=== PATIENT | male | born 1950 | race Two or more races ===

== ENCOUNTER → 2023-03-09 | Outpatient (CLI) | payer OTHER ==
[2023-03-09 08:15] LABS: Hematocrit 43.8 % (41.0-53.0); Mean Corpuscular Hemoglobin 31.2 pg (28.0-32.0); Mean Corpuscular Hgb Conc. 34.3 g/dL (32.0-36.0); Red Blood Cells 4.82 10^6/uL (4.5-5.90); Red Cell Distribution Width 14.1 % (11.8-14.3); White Blood Cell 7.2 10^3/uL (4.4-10.8)
[2023-03-09 08:22] LABS: Band Neutrophils % (manual) 0; Basophils % (manual) 0 (0.0-2.0); Blast Cells 0; Eosinophils % (manual) 0 (0-7); Metamyelocytes % 0; Myelocytes % 0; Promyelocytes % 0
[2023-03-09 08:35] LABS: Urine Bacteria NONE SEEN /hpf (None Seen); Urine Blood Negative /uL (Negative); Urine Mucus FEW (None Seen); Urine WBC 1 /hpf (0 - 3)
[2023-03-09 08:54] LABS: Magnesium 2.2 mg/dL (1.6-2.6); Uric Acid 4.8 mg/dL (3.5-7.2)
[2023-03-09 09:05] LABS: Folate (Folic Acid) 17.33 ng/mL (5.38-24)
[2023-03-09 09:06] LABS: Lymphocytes % (manual) 52 (10.0-50.0); Monocytes % (manual) 7 (0-12); Reactive Lymphocytes 4
== END | disposition home or self-care (01) ==
LOC: LAB 07:55
PROVIDERS: ATTEND Nurse Practitioner Family
DX: Z00.00 Encounter for general adult medical examination without abnormal findings (principal)
CPT/HCPCS: 36415; 80061; 81001; 82306; 82607; 82746; 83036; 83735; 84443; 84550; 85007; 85027; 87086

== ENCOUNTER → 2023-06-22 | Outpatient (CLI) | payer OTHER ==
[2023-06-22 11:52] LABS: Basophils # (auto) 0 10 ^3/uL (0-0.2); Basophils % (auto) 0.6 % (0.0-2.0); Eosinophils # (auto) 0.1 10 ^3/uL (0-0.8); Hematocrit 46.4 % (41.0-53.0); Hemoglobin 15.7 g/dL (13.5-17.5); Lymphocytes # (auto) 3.6 10 ^3/uL (0.4-5.4); Mean Corpuscular Hemoglobin 30.4 pg (28.0-32.0); Mean Corpuscular Volume 89.4 fL (80.0-100.0); Monocytes # (auto) 0.5 10 ^3/uL (0-1.3); Monocytes % (auto) 6.4 % (0.0-12.0); Neutrophils # (auto) 2.8 10 ^3/uL (1.6-8.6); Nucleated Red Blood Cells % 0.1 %; Red Blood Cells 5.18 10^6/uL (4.5-5.90); Red Cell Distribution Width 14.3 % (11.8-14.3)
[2023-06-22 11:54] LABS: Urine Bacteria NONE SEEN /hpf (None Seen); Urine Blood Negative /uL (Negative); Urine Clarity Clear (Clear); Urine Color Yellow (Yellow); Urine Mucus FEW (None Seen); Urine Protein, UAD TRACE (Negative); Urine Specific Gravity 1.021 (1.001-1.035); Urine Urobilinogen Normal (Negative); Urine WBC 1 /hpf (0 - 3); Urine pH 5.5 (5.0-8.0)
[2023-06-22 12:45] LABS: Prostate Specific Antigen 1.32 ng/mL (0.0-4.0)
[2023-06-22 12:46] LABS: Alanine Aminotransferase 42 U/L (7-40); Albumin 4.9 g/dL (3.2-4.8); Alkaline Phosphatase 127 U/L (46-116); Anion Gap 8 (5-15); Aspartate Aminotransferase 28 U/L (13-40); BUN/Creatinine Ratio 11.7 (10.0-20.0); Blood Urea Nitrogen 9 mg/dL (9-23); Calcium 9.7 mg/dL (8.7-10.4); Carbon Dioxide 27 mmol/L (20-30); Chloride 105 mmol/L (98-107); Glucose 189 mg/dL (74-106); Magnesium 2.1 mg/dL (1.6-2.6); Potassium 3.9 mmol/L (3.5-5.1); Sodium 140 mmol/L (136-145)
[2023-06-22 12:47] LABS: Bilirubin, Total 1.6 mg/dL (0.2-1.0); Total Protein 7.4 g/dL (5.7-8.2)
[2023-06-22 12:49] LABS: Folate (Folic Acid) 16.15 ng/mL (>5.38)
[2023-06-22 13:13] LABS: Uric Acid 5.2 mg/dL (3.7-9.2)
[2023-06-22 13:14] LABS: Cholesterol 195 mg/dL (< 200); LDL Cholesterol 118 mg/dL (< 100); Triglycerides 135 mg/dL (< 150)
[2023-06-22 13:16] LABS: HDL Cholesterol 56 mg/dL (40-59)
== END | disposition home or self-care (01) ==
LOC: LAB 11:25
PROVIDERS: ATTEND Internal Medicine
DX: D51.9 Vitamin B12 deficiency anemia, unspecified (principal); E55.9 Vitamin D deficiency, unspecified; E61.2 Magnesium deficiency; R79.89 Other specified abnormal findings of blood chemistry; R68.89 Other general symptoms and signs; R73.09 Other abnormal glucose; R82.90 Unspecified abnormal findings in urine; R82.79 Other abnormal findings on microbiological examination of urine; R94.6 Abnormal results of thyroid function studies
CPT/HCPCS: 36415; 80053; 80061; 81001; 82306; 82607; 82746; 83036; 83735; 84153; 84443; 84550; 85025; 87086

== ENCOUNTER → 2023-09-14 | Outpatient (CLI) | payer OTHER ==
[2023-09-14 11:05] LABS: Hematocrit 43.8 % (41.0-53.0); Hemoglobin 14.7 g/dL (13.5-17.5); Mean Corpuscular Hemoglobin 30.7 pg (28.0-32.0); Mean Corpuscular Hgb Conc. 33.7 g/dL (32.0-36.0); Mean Corpuscular Volume 91.1 fL (80.0-100.0); Red Blood Cells 4.81 10^6/uL (4.5-5.90); Red Cell Distribution Width 13.5 % (11.8-14.3); White Blood Cell 6.9 10^3/uL (4.4-10.8)
[2023-09-14 11:29] LABS: Band Neutrophils % (manual) 0; Basophils % (manual) 0 (0.0-2.0); Blast Cells 0; Metamyelocytes % 0; Myelocytes % 0; Promyelocytes % 0; Reactive Lymphocytes 0
[2023-09-14 11:56] LABS: Alanine Aminotransferase 28 U/L (7-40); Albumin 4.4 g/dL (3.2-4.8); Alkaline Phosphatase 98 U/L (46-116); Anion Gap 6 (5-15); Aspartate Aminotransferase 24 U/L (13-40); BUN/Creatinine Ratio 7.4 (10.0-20.0); Blood Urea Nitrogen 6 mg/dL (9-23); Calcium 9.9 mg/dL (8.5-10.1); Carbon Dioxide 29 mmol/L (20-30); Chloride 107 mmol/L (98-107); Cholesterol 189 mg/dL (< 200); Glucose 144 mg/dL (74-106); HDL Cholesterol 48 mg/dL (40-59); LDL Cholesterol 121 mg/dL (< 100); Potassium 4.1 mmol/L (3.5-5.1); Sodium 142 mmol/L (136-145); Triglycerides 164 mg/dL (< 150)
[2023-09-14 12:00] LABS: Folate (Folic Acid) 18.47 ng/mL (>5.38)
[2023-09-14 12:07] LABS: Magnesium 2.1 mg/dL (1.6-2.6); Uric Acid 4.2 mg/dL (3.7-9.2)
[2023-09-14 12:29] LABS: Eosinophils % (manual) 4 (0-7); Lymphocytes % (manual) 58 (10.0-50.0); Monocytes % (manual) 5 (0-12); Platelet Estimate Adequate
[2023-09-14 13:14] LABS: Urine Bacteria FEW /hpf (None Seen); Urine Blood Negative /uL (Negative); Urine Budding Yeast FEW /hpf (None Seen); Urine Clarity HAZY (Clear); Urine Color Yellow (Yellow); Urine Mucus FEW (None Seen); Urine Protein, UAD Negative (Negative); Urine Specific Gravity 1.017 (1.001-1.035); Urine Urobilinogen Normal (Negative); Urine WBC <1 /hpf (0 - 3)
== END | disposition home or self-care (01) ==
LOC: LAB 10:45
PROVIDERS: ATTEND Internal Medicine
DX: E61.2 Magnesium deficiency (principal); R78.89 Finding of other specified substances, not normally found in blood; E78.9 Disorder of lipoprotein metabolism, unspecified; R68.89 Other general symptoms and signs; R94.6 Abnormal results of thyroid function studies; E79.0 Hyperuricemia without signs of inflammatory arthritis and tophaceous disease; R82.90 Unspecified abnormal findings in urine; R82.991 Hypocitraturia; R82.79 Other abnormal findings on microbiological examination of urine; E85.9 Amyloidosis, unspecified; D51.9 Vitamin B12 deficiency anemia, unspecified
CPT/HCPCS: 36415; 80053; 80061; 81001; 82306; 82607; 82746; 83036; 83735; 84443; 84550; 85007; 85027; 87086

== ENCOUNTER → 2023-11-15 | Outpatient (CLI) | payer OTHER ==
[2023-11-15 09:46] LABS: Urine Bacteria NONE SEEN /hpf (None Seen); Urine Blood Negative /uL (Negative); Urine Clarity Clear (Clear); Urine Color Yellow (Yellow); Urine Protein, UAD Negative (Negative); Urine Specific Gravity 1.039 (1.001-1.035); Urine Urobilinogen Normal (Negative); Urine WBC <1 /hpf (0 - 3); Urine pH 6.5 (5.0-8.0)
[2023-11-15 09:55] LABS: Hematocrit 46.6 % (41.0-53.0); Hemoglobin 15.7 g/dL (13.5-17.5); Mean Corpuscular Hemoglobin 30.4 pg (28.0-32.0); Mean Corpuscular Hgb Conc. 33.7 g/dL (32.0-36.0); Mean Corpuscular Volume 90.3 fL (80.0-100.0); Red Blood Cells 5.16 10^6/uL (4.5-5.90); Red Cell Distribution Width 13.9 % (11.8-14.3); White Blood Cell 8.4 10^3/uL (4.4-10.8)
[2023-11-15 10:01] LABS: Band Neutrophils % (manual) 0; Basophils % (manual) 0 (0.0-2.0); Blast Cells 0; Metamyelocytes % 0; Myelocytes % 0; Promyelocytes % 0
[2023-11-15 10:15] LABS: Alanine Aminotransferase 33 U/L (7-40); Albumin 4.5 g/dL (3.2-4.8); Alkaline Phosphatase 118 U/L (46-116); Anion Gap 4 (5-15); Aspartate Aminotransferase 22 U/L (13-40); BUN/Creatinine Ratio 13.3 (10.0-20.0); Blood Urea Nitrogen 11 mg/dL (9-23); Carbon Dioxide 27 mmol/L (20-30); Chloride 108 mmol/L (98-107); Glucose 153 mg/dL (74-106); LDL Cholesterol 151 mg/dL (< 100); Sodium 139 mmol/L (136-145); Triglycerides 129 mg/dL (< 150)
[2023-11-15 10:16] LABS: Bilirubin, Total 1.6 mg/dL (0.2-1.0); Cholesterol 232 mg/dL (< 200); HDL Cholesterol 65 mg/dL (40-59); Total Protein 7.1 g/dL (5.7-8.2)
[2023-11-15 10:21] LABS: Folate (Folic Acid) 19.61 ng/mL (>5.38)
[2023-11-15 10:26] LABS: Uric Acid 5.1 mg/dL (3.7-9.2)
[2023-11-15 10:27] LABS: Magnesium 2.1 mg/dL (1.6-2.6)
[2023-11-15 12:42] LABS: Eosinophils % (manual) 3 (0-7); Lymphocytes % (manual) 52 (10.0-50.0); Monocytes % (manual) 14 (0-12); Platelet Estimate Adequate; Reactive Lymphocytes 1
== END | disposition home or self-care (01) ==
LOC: LAB 09:19
PROVIDERS: ATTEND Internal Medicine
DX: E61.2 Magnesium deficiency (principal); E78.9 Disorder of lipoprotein metabolism, unspecified; R68.89 Other general symptoms and signs; R78.89 Finding of other specified substances, not normally found in blood; R94.6 Abnormal results of thyroid function studies; E79.0 Hyperuricemia without signs of inflammatory arthritis and tophaceous disease; R82.991 Hypocitraturia; E85.9 Amyloidosis, unspecified; R82.90 Unspecified abnormal findings in urine; R82.79 Other abnormal findings on microbiological examination of urine; D51.9 Vitamin B12 deficiency anemia, unspecified
CPT/HCPCS: 36415; 80053; 80061; 81001; 82306; 82607; 82746; 83036; 83735; 84443; 84550; 85007; 85027; 87086

== ENCOUNTER → 2023-12-22 | Outpatient (CLI) | payer OTHER ==
[2023-12-22 09:52] LABS: Basophils # (auto) 0 10 ^3/uL (0-0.2); Basophils % (auto) 0.6 % (0.0-2.0); Eosinophils # (auto) 0.1 10 ^3/uL (0-0.8); Eosinophils % (auto) 1.7 % (0.0-7.0); Hematocrit 42.6 % (41.0-53.0); Lymphocytes # (auto) 3.9 10 ^3/uL (0.4-5.4); Mean Corpuscular Hemoglobin 29.6 pg (28.0-32.0); Mean Corpuscular Hgb Conc. 32.8 g/dL (32.0-36.0); Mean Corpuscular Volume 90.5 fL (80.0-100.0); Monocytes # (auto) 0.5 10 ^3/uL (0-1.3); Monocytes % (auto) 7.4 % (0.0-12.0); Neutrophils # (auto) 2.5 10 ^3/uL (1.6-8.6); Neutrophils % (auto) 35.3 % (37.0-80.0); Nucleated Red Blood Cells % 0.1 %; Red Blood Cells 4.71 10^6/uL (4.5-5.90); Red Cell Distribution Width 13.5 % (11.8-14.3); White Blood Cell 7.1 10^3/uL (4.4-10.8)
[2023-12-22 10:06] LABS: Urine Bacteria NONE SEEN /hpf (None Seen); Urine Blood Negative /uL (Negative); Urine Clarity Clear (Clear); Urine Color Colorless (Yellow); Urine Mucus FEW (None Seen); Urine Protein, UAD Negative (Negative); Urine Specific Gravity 1.014 (1.001-1.035); Urine Urobilinogen Normal (Negative); Urine WBC <1 /hpf (0 - 3); Urine pH 5.5 (5.0-8.0)
[2023-12-22 10:28] LABS: Triglycerides 150 mg/dL (< 150)
[2023-12-22 10:29] LABS: Alanine Aminotransferase 20 U/L (7-40); Albumin 4.1 g/dL (3.2-4.8); Alkaline Phosphatase 114 U/L (46-116); Anion Gap 6 (5-15); Aspartate Aminotransferase 18 U/L (13-40); BUN/Creatinine Ratio 10.3 (10.0-20.0); Bilirubin, Total 1.4 mg/dL (0.2-1.0); Blood Urea Nitrogen 9 mg/dL (9-23); Calcium 9.5 mg/dL (8.5-10.1); Carbon Dioxide 29 mmol/L (20-30); Chloride 105 mmol/L (98-107); Cholesterol 168 mg/dL (< 200); Glucose 149 mg/dL (74-106); HDL Cholesterol 50 mg/dL (40-59); LDL Cholesterol 96 mg/dL (< 100); Sodium 140 mmol/L (136-145); Total Protein 6.8 g/dL (5.7-8.2)
[2023-12-22 10:43] LABS: Folate (Folic Acid) 18.13 ng/mL (>5.38)
[2023-12-22 11:20] LABS: Uric Acid 4.7 mg/dL (3.7-9.2)
[2023-12-22 11:21] LABS: Magnesium 1.9 mg/dL (1.6-2.6)
== END | disposition home or self-care (01) ==
LOC: LAB 09:29
PROVIDERS: ATTEND Internal Medicine
DX: E61.2 Magnesium deficiency (principal); E79.0 Hyperuricemia without signs of inflammatory arthritis and tophaceous disease; R94.6 Abnormal results of thyroid function studies; R82.998 Other abnormal findings in urine; D51.9 Vitamin B12 deficiency anemia, unspecified; E55.9 Vitamin D deficiency, unspecified; R82.79 Other abnormal findings on microbiological examination of urine; R78.89 Finding of other specified substances, not normally found in blood; R68.89 Other general symptoms and signs; E78.49 Other hyperlipidemia; R73.09 Other abnormal glucose
CPT/HCPCS: 36415; 80053; 80061; 81001; 82306; 82607; 82746; 83036; 83735; 84443; 84550; 85025; 87086

== ENCOUNTER → 2024-05-10 | Outpatient (CLI) | payer OTHER ==
[2024-05-10 11:02] LABS: Urine Bacteria None Seen /hpf (None Seen)
[2024-05-10 11:11] LABS: Hematocrit 45.4 % (41.0-53.0); Hemoglobin 15.7 g/dL (13.5-17.5); Mean Corpuscular Hemoglobin 31.1 pg (28.0-32.0); Mean Corpuscular Hgb Conc. 34.5 g/dL (32.0-36.0); Red Blood Cells 5.04 10^6/uL (4.5-5.90); White Blood Cell 6.8 10^3/uL (4.4-10.8)
[2024-05-10 11:15] LABS: Urine Blood Negative /uL (Negative); Urine Clarity Clear (Clear); Urine Color Yellow (Yellow); Urine Mucus FEW (None Seen); Urine Protein, UAD TRACE (Negative); Urine Specific Gravity 1.022 (1.001-1.035); Urine Urobilinogen Normal (Negative); Urine WBC <1 /hpf (0 - 3)
[2024-05-10 11:40] LABS: Band Neutrophils % (manual) 0; Basophils % (manual) 0 (0.0-2.0); Blast Cells 0; Metamyelocytes % 0; Myelocytes % 0; Promyelocytes % 0; Reactive Lymphocytes 0
[2024-05-10 11:59] LABS: Alanine Aminotransferase 34 U/L (7-40); Albumin 4.6 g/dL (3.2-4.8); Alkaline Phosphatase 109 U/L (46-116); Anion Gap 7 (5-15); Aspartate Aminotransferase 22 U/L (13-40); BUN/Creatinine Ratio 10.8 (10.0-20.0); Blood Urea Nitrogen 9 mg/dL (9-23); Calcium 10.2 mg/dL (8.7-10.4); Carbon Dioxide 28 mmol/L (20-30); Chloride 105 mmol/L (98-107); Cholesterol 194 mg/dL (< 200); Glucose 138 mg/dL (74-106); LDL Cholesterol 115 mg/dL (< 100); Magnesium 2.1 mg/dL (1.6-2.6); Sodium 140 mmol/L (136-145); Triglycerides 134 mg/dL (< 150)
[2024-05-10 12:00] LABS: Bilirubin, Total 1.3 mg/dL (0.2-1.0); HDL Cholesterol 53 mg/dL (40-59); Total Protein 7.2 g/dL (5.7-8.2)
[2024-05-10 12:01] LABS: Folate (Folic Acid) 17.74 ng/mL (>5.38)
[2024-05-10 12:10] LABS: Uric Acid 5.3 mg/dL (3.7-9.2)
[2024-05-10 12:28] LABS: Eosinophils % (manual) 4 (0-7); Lymphocytes % (manual) 55 (10.0-50.0); Monocytes % (manual) 5 (0-12)
[2024-05-10 12:30] LABS: Platelet Estimate Adequate
== END | disposition home or self-care (01) ==
LOC: LAB 10:41
PROVIDERS: ATTEND Internal Medicine
DX: E11.9 Type 2 diabetes mellitus without complications (principal); E78.5 Hyperlipidemia, unspecified; I10 Essential (primary) hypertension; Z68.32 Body mass index [BMI] 32.0-32.9, adult
CPT/HCPCS: 36415; 80053; 80061; 81001; 82306; 82607; 82746; 83036; 83735; 84443; 84550; 85007; 85027; 87086

== ENCOUNTER → 2024-05-15 | Outpatient (CLI) | payer OTHER ==
[2024-05-15 11:22] LABS: Anion Gap 6 (5-15); Carbon Dioxide 30 mmol/L (20-30); Chloride 106 mmol/L (98-107); Potassium 4.1 mmol/L (3.5-5.1); Sodium 142 mmol/L (136-145)
[2024-05-15 11:23] LABS: Calcium 9.7 mg/dL (8.7-10.4)
[2024-05-15 11:29] LABS: BUN/Creatinine Ratio 8.5 (10.0-20.0); Blood Urea Nitrogen 7 mg/dL (9-23); Glucose 164 mg/dL (74-106)
[2024-05-15 11:53] LABS: Creatinine, Urine 95.97 mg/dL (30.0-125.0)
[2024-05-15 11:55] LABS: Micro Albumin < 3.0 mg/L (<30.0)
== END | disposition home or self-care (01) ==
LOC: LAB 10:27
PROVIDERS: ATTEND Internal Medicine
DX: E11.9 Type 2 diabetes mellitus without complications (principal); I10 Essential (primary) hypertension; E78.5 Hyperlipidemia, unspecified; Z68.32 Body mass index [BMI] 32.0-32.9, adult
CPT/HCPCS: 36415; 80048; 82043; 82570

== ENCOUNTER → 2024-08-14 | Outpatient (CLI) | payer OTHER ==
[2024-08-14 10:20] LABS: Urine Bacteria None Seen /hpf (None Seen)
[2024-08-14 11:10] LABS: Hemoglobin 14.5 g/dL (13.5-17.5); Mean Corpuscular Hemoglobin 30.9 pg (28.0-32.0); Mean Corpuscular Hgb Conc. 34.4 g/dL (32.0-36.0); Mean Corpuscular Volume 89.8 fL (80.0-100.0); Platelet Count (auto) 191 10^3/uL (140-450); Red Blood Cells 4.68 10^6/uL (4.5-5.90); Red Cell Distribution Width 13.8 % (11.8-14.3); White Blood Cell 7.3 10^3/uL (4.4-10.8)
[2024-08-14 11:12] LABS: Basophils % (manual) 0 (0.0-2.0); Blast Cells 0; Metamyelocytes % 0; Myelocytes % 0; Promyelocytes % 0; Reactive Lymphocytes 0
[2024-08-14 11:17] LABS: Urine Blood Negative /uL (Negative); Urine Clarity Clear (Clear); Urine Color Light-Yellow (Yellow); Urine Protein, UAD Negative (Negative); Urine Specific Gravity 1.039 (1.001-1.035); Urine Urobilinogen Normal (Negative); Urine WBC <1 /hpf (0 - 3); Urine pH 5.5 (5.0-9.0)
[2024-08-14 11:33] LABS: Alanine Aminotransferase 30 U/L (7-40); Alkaline Phosphatase 90 U/L (46-116); Anion Gap 6 (5-15); BUN/Creatinine Ratio 11.7 (10.0-20.0); Blood Urea Nitrogen 9 mg/dL (9-23); Calcium 9.8 mg/dL (8.7-10.4); Carbon Dioxide 28 mmol/L (20-31); Chloride 108 mmol/L (98-107); Glucose 140 mg/dL (74-106); LDL Cholesterol 82 mg/dL (< 100); Magnesium 2.1 mg/dL (1.6-2.6); Potassium 3.8 mmol/L (3.5-5.1); Sodium 142 mmol/L (136-145); Triglycerides 100 mg/dL (< 150)
[2024-08-14 11:34] LABS: Albumin 4.3 g/dL (3.2-4.8); Aspartate Aminotransferase 22 U/L (13-40); Bilirubin, Total 1.8 mg/dL (0.2-1.0); Cholesterol 163 mg/dL (< 200); HDL Cholesterol 61 mg/dL (40-59)
[2024-08-14 11:51] LABS: Folate (Folic Acid) 19.05 ng/mL (>5.38)
[2024-08-14 11:54] LABS: Band Neutrophils % (manual) 4; Eosinophils % (manual) 3 (0-7); Lymphocytes % (manual) 60 (10.0-50.0); Monocytes % (manual) 4 (0-12); Platelet Estimate Adequate
[2024-08-14 12:33] LABS: Uric Acid 4.2 mg/dL (3.7-9.2)
== END | disposition home or self-care (01) ==
LOC: LAB 10:05
PROVIDERS: ATTEND Nurse Practitioner Family
DX: I10 Essential (primary) hypertension (principal); E11.9 Type 2 diabetes mellitus without complications; E78.5 Hyperlipidemia, unspecified; M47.812 Spondylosis without myelopathy or radiculopathy, cervical region; I00 Rheumatic fever without heart involvement; Z79.899 Other long term (current) drug therapy
CPT/HCPCS: 36415; 80053; 80061; 81001; 82043; 82306; 82607; 82746; 83036; 83735; 84443; 84550; 85007; 85027; 87086

== ENCOUNTER → 2024-11-14 | Outpatient (CLI) | payer OTHER ==
[2024-11-14 12:13] LABS: Urine Bacteria None Seen /hpf (None Seen)
[2024-11-14 12:39] LABS: Basophils # (auto) 0 10 ^3/uL (0-0.2); Basophils % (auto) 0.7 % (0.0-2.0); Eosinophils # (auto) 0.1 10 ^3/uL (0-0.8); Eosinophils % (auto) 1.5 % (0.0-7.0); Hematocrit 46.7 % (41.0-53.0); Hemoglobin 15.3 g/dL (13.5-17.5); Lymphocytes # (auto) 3.1 10 ^3/uL (0.4-5.4); Lymphocytes % (auto) 49.3 % (10.0-50.0); Mean Corpuscular Hemoglobin 29.6 pg (28.0-32.0); Mean Corpuscular Hgb Conc. 32.8 g/dL (32.0-36.0); Mean Corpuscular Volume 90.2 fL (80.0-100.0); Monocytes # (auto) 0.5 10 ^3/uL (0-1.3); Monocytes % (auto) 7.4 % (0.0-12.0); Neutrophils # (auto) 2.6 10 ^3/uL (1.6-8.6); Neutrophils % (auto) 41.1 % (37.0-80.0); Nucleated Red Blood Cells % 0.2 %; Platelet Count (auto) 169 10^3/uL (140-450); Red Blood Cells 5.18 10^6/uL (4.5-5.90); Red Cell Distribution Width 14.2 % (11.8-14.3); White Blood Cell 6.2 10^3/uL (4.4-10.8)
[2024-11-14 13:08] LABS: Urine Blood Negative /uL (Negative); Urine Clarity Clear (Clear); Urine Color Light-Yellow (Yellow); Urine Protein, UAD Negative (Negative); Urine Specific Gravity 1.044 (1.001-1.035); Urine Squamous Epithelial Cell FEW /hpf (<5); Urine Urobilinogen Normal (Negative)
[2024-11-14 13:58] LABS: Alanine Aminotransferase 33 U/L (7-40); Albumin 4.7 g/dL (3.2-4.8); Anion Gap 12 (5-15); Aspartate Aminotransferase 24 U/L (13-40); BUN/Creatinine Ratio 13.8 (10.0-20.0); Bilirubin, Total 1.2 mg/dL (0.2-1.0); Blood Urea Nitrogen 11 mg/dL (9-23); Carbon Dioxide 26 mmol/L (20-31); Chloride 104 mmol/L (98-107); Cholesterol 199 mg/dL (< 200); HDL Cholesterol 59 mg/dL (40-59); Sodium 142 mmol/L (136-145); Total Protein 7.4 g/dL (5.7-8.2); Triglycerides 110 mg/dL (< 150)
[2024-11-14 14:01] LABS: Alkaline Phosphatase 118 U/L (46-116); Calcium 10.5 mg/dL (8.7-10.4); Glucose 149 mg/dL (74-106); LDL Cholesterol 126 mg/dL (< 100)
[2024-11-14 14:28] LABS: Uric Acid 4.1 mg/dL (3.7-9.2)
[2024-11-14 15:27] LABS: Folate (Folic Acid) 17.63 ng/mL (>5.38)
== END | disposition home or self-care (01) ==
LOC: LAB 11:53
PROVIDERS: ATTEND Internal Medicine
DX: E55.9 Vitamin D deficiency, unspecified (principal); E61.2 Magnesium deficiency; R94.6 Abnormal results of thyroid function studies; R82.79 Other abnormal findings on microbiological examination of urine; D51.9 Vitamin B12 deficiency anemia, unspecified; E79.89 Other specified disorders of purine and pyrimidine metabolism; R68.89 Other general symptoms and signs; R73.09 Other abnormal glucose
CPT/HCPCS: 36415; 80053; 80061; 81001; 82306; 82607; 82746; 83036; 84443; 84550; 85025; 87086

== ENCOUNTER 2024-12-12 08:52 | Inpatient (IN) | payer OTHER, MEDICAID ==
[~2024-12-12] VITALS: Ht 152.4 cm; Wt 71.6 kg
--- NOTE | 2024-12-12 09:37 | ED.PDOC ---
History of Present Illness HPI Comments 74-year-old male with PMHx DM, HTN, Peptic Ulcers presents with a chief complaint of abdominal pain, hematemesis, nausea, and vomiting. Patient states that his abdomen pain is localized to his epigastric region, nonradiating, describes as cramping. Patient mentions that his onset of symptoms began this morning. Patient noticed that he had blood in his vomit. Patient denies having an endoscopy recently. No other symptoms or modifying factors present at this time. Chief Complaint: GI Bleed Time Seen by MD: 09:20 Primary Care Provider: EFRAIN Evans Notes: Medications, Allergies Allergies: Coded Allergies: NO KNOWN ALLERGIES (Unverified , 12/12/24) Information Source: Patient Mode of Arrival: Ambulatory Severity: Moderate Timing: Hours Duration: Since onset Prehospital treatment: None Past Medical History PAST MEDICAL HISTORY: DM, HTN Past Medical History (Other): Peptic Ulcers Surgical History: Denies all surgeries Family History Family History: Reviewed,noncontributory to illness Social History Smoker: Non-Smoker Alcohol: Denies ETOH Use Drugs: Denies Drug Use Lives In: Home Constitutional: denies: chills, diaphoresis, fatigue, fever, malaise, sweats, weakness, others EENTM: denies: blurred vision, double vision, ear bleeding, ear discharge, ear drainage, ear pain, ear ringing, eye pain, eye redness, hearing loss, mouth pain, mouth swelling, nasal discharge, nose bleeding, nose congestion, nose pain, photophobia, tearing, throat pain, throat swelling, voice changes, others Respiratory: denies: cough, hemoptysis, orthopnea, SOB at rest, shortness of breath, SOB with excertion, stridor, wheezing, others Cardiovascular: denies: chest pain, dizzy spells, diaphoresis, Dyspnea on exertion, edema, irregular heart beat, left arm pain, lightheadedness, palpitations, PND, syncope, others Gastrointestinal: reports: abdominal pain, hematemesis, nausea, vomiting; denies: abdomen distended, blood streaked bowels, constipated, diarrhea, dysphagia, difficulty swallowing, melena, poor appetite, poor fluid intake, rectal bleeding, rectal pain, others Genitourinary: denies: burning, dysuria, flank pain, frequency, hematuria, incontinence, penile discharge, penile sore, pain, testicle pain, testicle swelling, urgency, others Neurological: denies: dizziness, fainting, headache, left sided numbness, left sided weakness, numbness, paresthesia, pre-existing deficit, right sided numbness, right sided weakness, seizure, speech problems, tingling, tremors, weakness, others Musculoskeletal: denies: back pain, gout, joint pain, joint swelling, muscle pain, muscle stiffness, neck pain, others Integumetry: denies: bruises, change in color, change in hair/nails, dryness, laceration, lesions, lumps, rash, wounds, others Allergic/Immunocompromised: denies: Difficulty Healing, Frequent Infections, Hives, Itching, others Hematologic/Lymphatic: denies: anemia, blood clots, easy bleeding, easy bruising, swollen glands, others Endocrine: denies: excessive hunger, excessive sweating, excessive thirst, excessive urination, flushing, intolerance to cold, intolerance to heat, unexplained weight gain, unexplained weight loss, others Psychiatric: denies: anxiety, bipolar disorder, depression, hopeless, panic disorder, schizophrenia, sleepless, suicidal, others All Other Systems: Reviewed and Negative Physical Exam General Appearance: No Apparent Distress, Normal HEENT: Normal ENT Inspection, Pharynx Normal, TMs Normal Neck: Full Range of Motion, Non-Tender, Normal, Normal Inspection Respiratory: Chest Non-Tender, Lungs Clear, No Accessory Muscle Use, No Re spiratory Distress, Normal Breath Sounds Cardiovascular: No Edema, No JVD, No Murmur, No Gallop, Normal Peripheral Pulses, Regular Rate/Rhythm Breast Exam: Deferred Gastrointestinal: No Organomegaly, Non Tender, No Pulsatile Mass, Normal Bowel Sounds, Soft Genitalia: Deferred Pelvic: Deferred Rectal: Deferred Extremities: No calf tenderness, Normal capillary refill, Normal inspection, Normal range of motion, Non-tender, No pedal edema Musculoskeletal : Apperance: Normal Neurologic: Alert, right of way supervisor II-XII nml as Tested, No Motor Deficits, Normal Affect, Normal Mood, No Sensory Deficits Cerebellar Function: Normal Reflexes: Normal Skin: Dry, Normal Color, Warm Lymphatic: No Adenopathy Was a procedure done? Was a procedure done?: No Differential Dx Considerations may include: GI bleed, gastritis, gastroenteritis, X-Ray, Labs, Meds, VS Vital Signs Date Time Temp Pulse Resp B/P (MAP) Pulse Ox O2 Delivery O2 Flow Rate FiO2 12/12/24 11:25 97.5 92 2 129/67 (87) 98 97.5 12/12/24 09:51 107 18 94 Room Air* 0 21 12/12/24 09:34 98.7 107 18 151/82 (105) 94 98.7 12/12/24 09:11 108 12/12/24 09:05 97.8 113 22 144/89 (107) 98 Lab Test 12/12/24 12:00 12/12/24 09:53 12/12/24 09:48 Range/Units Lactic Acid Level 2.5 *H 4.0 *H 0.4-2.0 mmol/L White Blood Count 10.3 4.4-10.8 10^3/uL Red Blood Count 5.70 4.5-5.90 10^6/uL Hemoglobin 17.2 13.5-17.5 g/dL Hematocrit 51.8 41.0-53.0 % Mean Corpuscular Volume 90.9 80.0-100.0 fL Mean Corpuscular Hemoglobin 30.3 28.0-32.0 pg Mean Corpuscular Hemoglobin Concent 33.3 32.0-36.0 g/dL Red Cell Distribution Width 13.6 11.8-14.3 % Platelet Count 231 140-450 10^3/uL Mean Platelet Volume 10.8 6.9-10.8 fL Neutrophils (%) (Auto) 75.1 37.0-80.0 % Lymphocytes (%) (Auto) 19.1 10.0-50.0 % Monocytes (%) (Auto) 5.5 0.0-12.0 % Eosinophils (%) (Auto) 0.1 0.0-7.0 % Basophils (%) (Auto) 0.2 0.0-2.0 % Neutrophils # (Auto) 7.8 1.6-8.6 10 ^3/uL Lymphocytes # (Auto) 2.0 0.4-5.4 10 ^3/uL Monocytes # (Auto) 0.6 0-1.3 10 ^3/uL Eosinophils # (Auto) 0 0-0.8 10 ^3/uL Basophils # (Auto) 0 0-0.2 10 ^3/uL Nucleated Red Blood Cells 0.1 % Prothrombin Time 10.9 9.3-11.8 sec Prothrombin Time INR 1.03 0.9-1.15 Activated Partial Thromboplast Time 21.3 L 24.5-34.5 SEC Sodium Level 139 136-145 mmol/L Potassium Level 3.7 3.5-5.1 mmol/L Chloride Level 100 98-107 mmol/L Carbon Dioxide Level 21 20-31 mmol/L Anion Gap 18 H 5-15 Blood Urea Nitrogen 15 9-23 mg/dL Creatinine 1.03 0.700-1.30 mg/dL Glomerular Filtration Rate Calc 76 >90 mL/min BUN/Creatinine Ratio 14.6 10.0-20.0 Serum Glucose 198 H 74-106 mg/dL Calcium Level 10.8 H 8.7-10.4 mg/dL Total Bilirubin 1.7 H 0.2-1.0 mg/dL Aspartate Amino Transferase (AST) 27 13-40 U/L Alanine Aminotransferase (ALT) 32 7-40 U/L Alkaline Phosphatase 101 46-116 U/L Total Protein 8.7 H 5.7-8.2 g/dL Albumin 5.5 H 3.2-4.8 g/dL Lipase 30 12-53 U/L Urine Color Light-yellow Yellow Urine Clarity Clear Clear Urine pH 5.5 5.0-9.0 Urine Specific [place] 1.034 1.001-1.035 Urine Protein 1+ H Negative Urine Ketones 4+ H Negative Urine Blood Negative Negative /uL Urine Nitrite Negative Negative Urine Bilirubin Negative Negative Urine Urobilinogen Normal Negative mg/dL Urine Leukocyte Esterase Negative Negative /uL Urine RBC 1 0 - 3 /hpf Urine Microscopic WBC 3 0-3 /HPF Urine Squamous Epithelial Cells Few <5 /hpf Urine Bacteria None seen None Seen /hpf Urine Hyaline Casts Few 0 - 2 /lpf Urine Glucose 4+ H Normal mg/dL Current Medications Medications (Trade) Dose Ordered Sig/Alyson Route Start Time Stop Time Status Last Admin Sodium Chloride 1,000 ml @ 1,000 mls/hr Q1H ONCE IV 12/12/24 09:45 12/12/24 10:44 DC 12/12/24 10:04 Ondansetron HCl (Zofran) 4 mg ONCE ONCE IV 12/12/24 09:45 12/12/24 09:46 DC 12/12/24 10:06 Pantoprazole Sodium (Protonix) 80 mg ONCE ONCE IV 12/12/24 09:45 12/12/24 09:46 DC 12/12/24 10:06 Sodium Chloride 1,000 ml @ 1,000 mls/hr Q1H ONCE IV 12/12/24 11:30 12/12/24 12:29 DC 12/12/24 11:58 Time of 1ST Reevaluation: 09:50 Reevaluation 1ST: Unchanged Patient Education/Counseling: Diagnosis, Treatment, Prognosis Family Education/Counseling: Diagnosis, Treatment, Prognosis Departure 1 Departure Time of Disposition: 12:48 (Patient presented with abdominal pain that was concerning for possible appendicits, gastritis, cholecystitis, colitis, gastroenteritis, sbo, or orther possible surgical emergency. Data: 1. I ordered and reviewed the result of at least 3 labs including a CBC, BMP, and Urinalysis. 2. I independently interpreted the following tests: CT Abdoment and Pelvis is concerning for benign abdomen .Risk:This patient has a high risk of morbidity due to further diagnostic testing or treatment and may suffer from an acute abdominal process disorder. Workup reveals hematemesis and concern for GI bleed and patient should be admitted for further workup. and possible expert consultation. ) Impression: Primary Impression: Hematemesis Qualified Codes: K92.0 - Hematemesis Additional Impression: Epigastric pain Disposition: ADMITTED INPATIENT Admit to: Med Surg Condition: Serious Critical Care Note Critical Care Time?: Yes Critical care comment: Acute abdominal pain Authorized and Performed by: Gaurav Patino MD Total critical care time: Approximately 38 minutes Due to a high probability of clinically significant, life threatening deterioration, the patient required my highest level of preparedness to intervene emergently and I personally spent this critical care time directly and personally managing the patient. This critical care time included obtaining a history; examining the patient; pulse oximetry; ordering and review of studies; arranging urgent treatment with development of a management plan; evaluation of patient's response to treatment; frequent reassessment; and, discussions with other providers. This critical care time was performed to assess and manage the high probability of imminent, life-threatening deterioration that could result in multi-organ failure. It was exclusive of separately billable procedures and treating other patients and teaching time. Please see my other sections and the rest of the note for further information on patient assessment and treatment. Stability Stability form required: No Heart Score Heart Score: Heart Score Response (Comments) Value History N/A 0 EKG N/A 0 Age N/A 0 Risk Factors N/A 0 Troponin N/A 0 Total 0 I personally scribed for GAURAV PATINO MD ([email or web address]) on 12/12/24 at 09:37. Electronically submitted by Estrada Mcgovern ([email or web address]). GAURAV PATINO MD Dec 12, 2024 09:37
[2024-12-12 09:50] LABS: Urine Bacteria None Seen /hpf (None Seen)
[2024-12-12 09:51] VITALS: PULSE 107; RESP 18; O2SAT 94
[2024-12-12] MEDS: SODIUM CHLORIDE 0.9% 1,000 ML IV ONE ×2 (10:04→11:58)
[2024-12-12] MEDS: ONDANSETRON HCL 4 MG/2 ML VIAL IV ONE (10:06)
[2024-12-12] MEDS: PANTOPRAZOLE 40 MG/10 ML VIAL INJ IV ONE (10:06)
[2024-12-12 10:08] LABS: Urine Blood Negative /uL (Negative); Urine Clarity Clear (Clear); Urine Color Light-Yellow (Yellow); Urine Hyaline Cast FEW /lpf (0 - 2); Urine Protein, UAD 1+ (Negative); Urine Specific Gravity 1.034 (1.001-1.035); Urine Squamous Epithelial Cell FEW /hpf (<5); Urine Urobilinogen Normal (Negative); Urine WBC 3 /HPF (0-3); Urine pH 5.5 (5.0-9.0)
[2024-12-12 10:26] LABS: Alanine Aminotransferase 32 U/L (7-40); Alkaline Phosphatase 101 U/L (46-116); Anion Gap 18 (5-15); Aspartate Aminotransferase 27 U/L (13-40); BUN/Creatinine Ratio 14.6 (10.0-20.0); Blood Urea Nitrogen 15 mg/dL (9-23); Carbon Dioxide 21 mmol/L (20-31); Chloride 100 mmol/L (98-107); Potassium 3.7 mmol/L (3.5-5.1); Sodium 139 mmol/L (136-145)
[2024-12-12 10:32] LABS: Albumin 5.5 g/dL (3.2-4.8); Bilirubin, Total 1.7 mg/dL (0.2-1.0); Calcium 10.8 mg/dL (8.7-10.4); Glucose 198 mg/dL (74-106); Total Protein 8.7 g/dL (5.7-8.2)
[2024-12-12 10:40] LABS: INR 1.03 (0.9-1.15); Partial Thromboplastin Time 21.3 SEC (24.5-34.5); Prothrombin Time 10.9 sec (9.3-11.8)
[2024-12-12] MEDS: IOHEXOL 300 MG/ML 100ML BOTTLE IJ ONE (11:19)
--- NOTE | 2024-12-12 11:39 | DVH ---
CT ABDOMEN AND PELVIS WITH CONTRAST CLINICAL HISTORY: vomiting blood TECHNIQUE: TECHNIQUE: Multiple contiguous axial images of the abdomen and pelvis were performed with intravenous contrast.. The images were reformatted to generated coronal and sagittal reconstructions. 100 cc of Omnipaque 300 contrast was injected intravenously. Radiation optimization: All CT scans at this facility use at least one of these dose optimization azul hniques: automated exposure control mA and/or kV adjustment per patient size (includes targeted exam s where dose is matched to clinical indication) or iterative reconstruction. Radiation Dose Information: CT Dose: CTDI volume is 16.6 mGy. Dose-length product is 873 mGy*cm Comparison: None FINDINGS: There is diffuse fatty infiltration of the liver. The gallbladder, pancreas, kidneys, adrenal glands, and spleen appear within normal limits. There is no evidence of abdominal lymphadenopathy. There is no free fluid or free air. The small and large bowel loops demonstrate normal caliber. There are scattered diverticula in the d istal colon without evidence of acute diverticulitis. A normal appearing appendix is seen in the righ t lower quadrant abdomen. The abdominal aorta and IVC appear within normal limits. There is mild prostatomegaly. Bladder appears within normal limits with the degree of distention. The re is no evidence of a pelvic mass or lymphadenopathy. There is no free fluid collection. Lung bases are clear. There is no acute osseous abnormality. IMPRESSION: 1. There is no acute process in the abdomen and pelvis. 2. Hepatic steatosis. 3. Distal colon diverticulosis without evidence of acute diverticulitis. 4. Mild prostatomegaly. HS:Y
[2024-12-12 12:04] LABS: Lipase 30 U/L (12-53)
[2024-12-12 12:36] LABS: Basophils # (auto) 0 10 ^3/uL (0-0.2); Basophils % (auto) 0.2 % (0.0-2.0); Eosinophils # (auto) 0 10 ^3/uL (0-0.8); Eosinophils % (auto) 0.1 % (0.0-7.0); Hematocrit 51.8 % (41.0-53.0); Hemoglobin 17.2 g/dL (13.5-17.5); Lymphocytes % (auto) 19.1 % (10.0-50.0); Mean Corpuscular Hemoglobin 30.3 pg (28.0-32.0); Mean Corpuscular Hgb Conc. 33.3 g/dL (32.0-36.0); Mean Corpuscular Volume 90.9 fL (80.0-100.0); Monocytes # (auto) 0.6 10 ^3/uL (0-1.3); Monocytes % (auto) 5.5 % (0.0-12.0); Neutrophils # (auto) 7.8 10 ^3/uL (1.6-8.6); Neutrophils % (auto) 75.1 % (37.0-80.0); Nucleated Red Blood Cells % 0.1 %; Platelet Count (auto) 231 10^3/uL (140-450); Red Cell Distribution Width 13.6 % (11.8-14.3); White Blood Cell 10.3 10^3/uL (4.4-10.8)
[2024-12-12] MEDS ORDERED: ONDANSETRON HCL 4 MG/2 ML VIAL IV PRN (13:30)
[2024-12-12] MEDS ORDERED: DOCUSATE SOD 100 MG CAP PO PRN (13:30)
[2024-12-12] MEDS ORDERED: ACETAMINOPHEN 325 MG TAB PO PRN (13:30)
[2024-12-12] MEDS ORDERED: HYDROcodone-ACET 5/325MG TAB PO PRN (13:30)
[2024-12-12] MEDS ORDERED: PIOG1TAB36 PO (13:33)
[2024-12-12] MEDS ORDERED: ROSU10TA64 PO (13:33)
[2024-12-12] MEDS ORDERED: OMEP1CAP70 PO (13:33)
[2024-12-12] MEDS ORDERED: TRAM50TA2 PO (13:33)
[2024-12-12] MEDS ORDERED: EMPA1TAB3 PO (13:33)
[2024-12-12] MEDS ORDERED: SEMA1INJ2 SC (13:33)
[2024-12-12] MEDS ORDERED: GLIP10TA9 PO (13:33)
[2024-12-12] MEDS ORDERED: LISI-285 PO (13:33)
[2024-12-12] MEDS ORDERED: traMADol HCL 50 MG TAB PO PRN (13:45)
[2024-12-12] MEDS ORDERED: DEXTROSE (50%) 50ML SYRG IV PRN (13:45)
--- NOTE | 2024-12-12 13:57 | DVHHP2 ---
History of Present Illness Reason for Visit: Hematemesis History of Present Illness Demario Colby is a 74-year-old male with past medical history of hypertension, diabetes, and ulcers who comes in with complaints of nausea, vomiting, and hematosis. Patient states that he has been experiencing nausea and vomiting for 3 days and today he began vomiting blood and got scared and came to the hospital. Patient states he was also experiencing chills, denies diarrhea, chest pain, shortness of breath, fever, or cough. Cardiovascular: HTN GI: Peptic Ulcer disease Endocrine: Diabetes Past Surgical History: None Smoke: No ALCOHOL: none Drugs: None Lives: with Family Domestic Violence: Neg Review of Systems Constitutional: No: Fever, Chills, Sweats, Weakness, Malaise, Other Eyes: No: Pain, Vision change, Conjunctivae inflammation, Eyelid inflammation, Other, Redness ENT: No: Ear pain, Ear discharge, Nose pain, Nose discharge, Nose congestion, Mouth pain, Mouth swelling, Throat pain, Throat swelling, Other Respiratory: No: Cough, Dry, Shortness of breath, SOB with excertion, Wheezing, Hemoptysis, Pleuritic Pain, Sputum, Wheezing, Other Cardiovascular: No: Chest Pain, Palpitations, Orthopnea, Paroxysmal Noc. Dyspnea, Edema, Lt Headedness, Other Gastrointestinal: Nausea, Vomiting, Abdominal Pain; No: Diarrhea, Constipation, Melena, Hematochezia, Other Genitourinary: No Dysuria, No Frequency, No Incontinence, No Hematuria, No Retention, No Other Musculoskeletal: No: other, neck pain, shoulder pain, arm pain, back pain, hand pain, leg pain, foot pain Skin: No: Rash, Lesions, Jaundice, Bruising, Other Neurological: No: Weakness, Numbness, Incoordination, Change in speech, Confusion, Seizures, Other Allergies: Coded Allergies: NO KNOWN ALLERGIES (Unverified , 12/12/24) Medications Current Medications Medications Dose Ordered Sig/Alyson Route Start Time Stop Time Status Last Admin Dose Admin Sodium Chloride 1,000 ml @ 100 mls/hr Q10H IV 12/12/24 13:30 UNV Acetaminophen/ Hydrocodone Bitart 1 tab Q4HP PRN PO 12/12/24 13:30 UNV Ondansetron HCl 4 mg Q4HP PRN IV 12/12/24 13:30 UNV Docusate Sodium 100 mg BIDPRN PRN PO 12/12/24 13:30 UNV Acetaminophen 650 mg Q6HP PRN PO 12/12/24 13:30 UNV Exam Vital Signs Vital Signs Date Time Temp Pulse Resp B/P (MAP) Pulse Ox O2 Delivery O2 Flow Rate FiO2 12/12/24 12:50 98.0 78 20 122/64 (83) 92 98.0 12/12/24 09:51 Room Air* 0 21 General Appearance: Alert, Oriented X3, Cooperative, mild distress HEENT: Atraumatic, PERRLA Respiratory: Clear to auscultation, Normal air movement Cardiovascular: Regular rate, Normal S1, Normal S2, No murmurs Abdominal: Normal bowel sounds, Soft, Other Extremities: No clubbing, No cyanosis, No edema, Normal pulses Skin: No rashes, No breakdown, No significant lesion Neuro: Normal gait, Normal speech, Strength at 5/5 X4 ext Psych/Mental Status: Mental status NL, Mood NL, Other Labs/Xrays Labs Test 12/12/24 12:00 12/12/24 09:53 12/12/24 09:48 Range/Units Lactic Acid Level 2.5 *H 0.4-2.0 mmol/L White Blood Count 10.3 4.4-10.8 10^3/uL Red Blood Count 5.70 4.5-5.90 10^6/uL Hemoglobin 17.2 13.5-17.5 g/dL Hematocrit 51.8 41.0-53.0 % Mean Corpuscular Volume 90.9 80.0-100.0 fL Mean Corpuscular Hemoglobin 30.3 28.0-32.0 pg Mean Corpuscular Hemoglobin Concent 33.3 32.0-36.0 g/dL Red Cell Distribution Width 13.6 11.8-14.3 % Platelet Count 231 140-450 10^3/uL Mean Platelet Volume 10.8 6.9-10.8 fL Neutrophils (%) (Auto) 75.1 37.0-80.0 % Lymphocytes (%) (Auto) 19.1 10.0-50.0 % Monocytes (%) (Auto) 5.5 0.0-12.0 % Eosinophils (%) (Auto) 0.1 0.0-7.0 % Basophils (%) (Auto) 0.2 0.0-2.0 % Neutrophils # (Auto) 7.8 1.6-8.6 10 ^3/uL Lymphocytes # (Auto) 2.0 0.4-5.4 10 ^3/uL Monocytes # (Auto) 0.6 0-1.3 10 ^3/uL Eosinophils # (Auto) 0 0-0.8 10 ^3/uL Basophils # (Auto) 0 0-0.2 10 ^3/uL Nucleated Red Blood Cells 0.1 % Prothrombin Time 10.9 9.3-11.8 sec Prothrombin Time INR 1.03 0.9-1.15 Activated Partial Thromboplast Time 21.3 L 24.5-34.5 SEC Sodium Level 139 136-145 mmol/L Potassium Level 3.7 3.5-5.1 mmol/L Chloride Level 100 98-107 mmol/L Carbon Dioxide Level 21 20-31 mmol/L Anion Gap 18 H 5-15 Blood Urea Nitrogen 15 9-23 mg/dL Creatinine 1.03 0.700-1.30 mg/dL Glomerular Filtration Rate Calc 76 >90 mL/min BUN/Creatinine Ratio 14.6 10.0-20.0 Serum Glucose 198 H 74-106 mg/dL Calcium Level 10.8 H 8.7-10.4 mg/dL Total Bilirubin 1.7 H 0.2-1.0 mg/dL Aspartate Amino Transferase (AST) 27 13-40 U/L Alanine Aminotransferase (ALT) 32 7-40 U/L Alkaline Phosphatase 101 46-116 U/L Total Protein 8.7 H 5.7-8.2 g/dL Albumin 5.5 H 3.2-4.8 g/dL Lipase 30 12-53 U/L Urine Color Light-yellow Yellow Urine Clarity Clear Clear Urine pH 5.5 5.0-9.0 Urine Specific [place] 1.034 1.001-1.035 Urine Protein 1+ H Negative Urine Ketones 4+ H Negative Urine Blood Negative Negative /uL Urine Nitrite Negative Negative Urine Bilirubin Negative Negative Urine Urobilinogen Normal Negative mg/dL Urine Leukocyte Esterase Negative Negative /uL Urine RBC 1 0 - 3 /hpf Urine Microscopic WBC 3 0-3 /HPF Urine Squamous Epithelial Cells Few <5 /hpf Urine Bacteria None seen None Seen /hpf Urine Hyaline Casts Few 0 - 2 /lpf Urine Glucose 4+ H Normal mg/dL CT ABDOMEN AND PELVIS WITH CONTRAST FINDINGS: There is diffuse fatty infiltration of the liver. The gallbladder, pancreas, kidneys, adrenal glands, and spleen appear within normal limits. There is no evidence of abdominal lymphadenopathy. There is no free fluid or free air. The small and large bowel loops demonstrate normal caliber. There are scattered diverticula in the distal colon without evidence of acute diverticulitis. A normal appearing appendix is seen in the right lower quadrant abdomen. The abdominal aorta and IVC appear within normal limits. There is mild prostatomegaly. Bladder appears within normal limits with the degree of distention. There is no evidence of a pelvic mass or lymphadenopathy. There is no free fluid collection. Lung bases are clear. There is no acute osseous abnormality. IMPRESSION: 1. There is no acute process in the abdomen and pelvis. 2. Hepatic steatosis. 3. Distal colon diverticulosis without evidence of acute diverticulitis. 4. Mild prostatomegaly. Assessment/Plan Assessment/Plan Assessment: Hematemesis, Hyperglycemia, hepatic Steatosis, Uncontrolled diabetes, Hypertension, Plan: Admit to Med-Surg, GI consult, Clear liquid diet, IV hydration, A1c, Accu checks Q AC&HS with sliding scale, Home medications reconciled, Plan discussed with: Patient My Orders Orders - RASHI WANG Procedure Category Date Status Time Code Status CODE 12/12/24 Transmitted 13:23 Sodium Chloride 0.9% PHA 12/12/24 Logged 13:30 Hydrocodone-Acet PHA 12/12/24 Logged 5/325mg Tab (Erath 13:30 Ondansetron Hcl PHA 12/12/24 Logged (Zofran) 13:30 Docusate Sodium PHA 12/12/24 Logged Capsule (Colace 13:30 Complete Blood Count LAB 12/13/24 Verified 04:00 Comprehensive LAB 12/13/24 Verified Metabolic Panel 04:00 Condition: Serious CONCEPCION 12/12/24 In Process 13:23 Acetaminophen Tablet PHA 12/12/24 Logged (Tylenol Tablet) 13:30 Clear Liq Diet DIET 12/12/24 Transmitted Lunch * [facility] Dent[facility] CONS 12/12/24 Transmitted 13:27 Admit ADMIT 12/12/24 Transmitted 13:28 Glucose Blood PHA 12/12/24 Transmitted (Accu-Chek Comfort 17:00 Bedtime Insulin Scale PHA 12/12/24 Verified 22:00 Moderate Insulin Ss PHA 12/12/24 Verified 17:00 Dextrose 50% Syringe PHA 12/12/24 Verified 13:45 Pantoprazole PHA 12/12/24 Verified (Protonix) 22:00 Tramadol Hcl (Ultram) PHA 12/12/24 Verified 13:45 (Nf) Empagliflozin PHA 12/13/24 Verified (Jardiance) 10:00 (Nf) Glipizide PHA 12/12/24 Verified 22:00 (Nf) Lisinopril & PHA 12/13/24 Verified Hydrochlorothiazi (Lis 10:00 (Nf) Pioglitazone PHA 12/13/24 Verified Hydrochloride (Pioglit 10:00 (Nf) Rosuvastatin PHA 12/13/24 Verified Calcium 10:00 Date of Service: Dec 12, 2024 Billing Provider: RASHI WANG Common Visit Codes: [id number] INP/OBS CARE (MOD) RASHI WANG Dec 12, 2024 13:57
[2024-12-12] MEDS: SODIUM CHLORIDE 0.9% 1,000 ML IV SCH (15:27)
[2024-12-12 16:25] VITALS: BP 127/64; PULSE 82; RESP 20; TEMP 98; O2SAT 95
--- NOTE | 2024-12-12 16:29 | DVHCONRES ---
Date Seen: Dec 12, 2024 Resident Creating Document: TONI SANCHES RESIDENT Referring Physician Debbie Painting Reason for Consultation Possible GI bleed History of Present Illness Patient is a 74-year-old male with past medical history of diabetes, hypertension, GERD, who comes in due to hematemesis. According to the patient, overnight he had 3 episodes of vomiting that did not contain any blood. In the morning he woke up and had another 3 episodes of vomiting which were now containing dark blood. Patient denies any similar symptoms in the past. Patient notes he had no checked for dinner the night before. Patient admits using Motrin often, 3-4 times per week. Past Medical History Type 2 diabetes, hypertension, GERD Past Surgical History Denies Allergies: Coded Allergies: NO KNOWN ALLERGIES (Unverified , 12/12/24) Home Meds Reported Medications Lisinopril & Hydrochlorothiazi (Lisinopril/Hydrochlorothi) 1 Tab Tab, 1 TAB PO DAILY, #30 TAB 5 Refills 12/12/24 Glipizide (Glipizide) 10 Mg Tab, 1 TAB PO BID 12/12/24 Pioglitazone Hydrochloride (PIOGLITAZONE HCL) 15 Mg Tab, 1 TAB PO DAILY 12/12/24 Empagliflozin (Jardiance) 25 Mg Tab, 1 TAB PO DAILY 12/12/24 Rosuvastatin Calcium (Rosuvastatin Calcium) 10 Mg Tab, 1 TAB PO DAILY 12/12/24 Semaglutide (Ozempic) 8 Mg/3 Ml Inj, 2 SC QWEEKLY 12/12/24 Omeprazole (Omeprazole Dr) 20 Mg Cap, 1 CAP PO DAILY 12/12/24 Tramadol Hcl (Tramadol Hcl) 50 Mg Tab, 1 TAB PO BIDPRN PRN 12/12/24 Current Medications Current Medications Medications (Trade) Dose Ordered Sig/Alyson Route PRN Reason Start Time Stop Time Status Last Admin Sodium Chloride 1,000 ml @ 100 mls/hr Q10H IV 12/12/24 13:30 12/12/24 15:27 Acetaminophen/ Hydrocodone Bitart ([place] 5/325MG Tab) 1 tab Q4HP PRN PO MODERATE PAIN (4-6 PAIN SCALE) 12/12/24 13:30 Ondansetron HCl (Zofran) 4 mg Q4HP PRN IV NAUSEA / VOMITING 12/12/24 13:30 Docusate Sodium (Colace Capsule) 100 mg BIDPRN PRN PO FOR CONSTIPATION 12/12/24 13:30 Acetaminophen (Tylenol Tablet) 650 mg Q6HP PRN PO PAIN SCALE 1-3 OR TEMP>100.4 12/12/24 13:30 Diagnostic Test (Pha) (Accu-Chek Comfort Curve T) 1 strip ACHS 12/12/24 17:00 Insulin Human Regular (InsuLIN R) HS SC 12/12/24 22:00 Insulin Human Regular (InsuLIN R) AC SC 12/12/24 17:00 Dextrose 50 ml UD PRN IV Blood Sugar LESS THAN 60 12/12/24 13:45 Pantoprazole Sodium (Protonix) 40 mg BID IV 12/12/24 22:00 Tramadol HCl (Ultram) 50 mg BIDPRN PRN PO PAIN SCALE 7 THRU 10 12/12/24 13:45 UNV Patient Own Medication 1 tab DAILY PO 12/13/24 10:00 UNV Patient Own Medication 1 tab BID PO 12/12/24 22:00 UNV Patient Own Medication 1 tab DAILY PO 12/13/24 10:00 UNV Patient Own Medication 1 tab DAILY PO 12/13/24 10:00 UNV Patient Own Medication 1 tab DAILY PO 12/13/24 10:00 UNV Sucralfate (Carafate Susp) 1 gm QID@0600,1130,1700,2200 PO 12/12/24 17:00 UNV Review of Systems Fatigue, shortness of breath, palpitations Vital Signs Vital Signs Date Time Temp Pulse Resp B/P (MAP) Pulse Ox O2 Delivery O2 Flow Rate FiO2 12/12/24 16:01 97.8 81 18 121/60 (80) 96 97.8 12/12/24 09:51 Room Air* 0 21 Physical Exam General Appearance: Cooperative. Well developed. Well nourished. NAD Head Exam: Normal inspection Neck Exam: Normal inspection. Non-tender. Normal alignment Pulmonary/Respiratory: Chest non-tender. Clear bilateral breath sounds, no crackles, no wheezing. Cardiovascular/Chest: Regular rate and rhythm. No murmurs. No JVD. Peripheral Pulses: 2+ Radial (R). 2+ Radial (L). 2+ Pedal (R). 2+ Pedal (L) Abdominal Exam: Normal bowel sounds. Soft. normal abdomen, no visible veins, midepigastric tenderness to palpation No hepatospenomegaly. No masses Ankle Exam: Negative ankle edema Thoughts/Psych: Normal thought pattern. Appropriate mood and affect. Good judgement and insight Skin Exam: Normal inspection. Normal color. Warm. Dry Labs/Diagnostic Data Labs Test 12/12/24 12:00 12/12/24 09:53 12/12/24 09:48 Range/Units Lactic Acid Level 2.5 *H 0.4-2.0 mmol/L White Blood Count 10.3 4.4-10.8 10^3/uL Red Blood Count 5.70 4.5-5.90 10^6/uL Hemoglobin 17.2 13.5-17.5 g/dL Hematocrit 51.8 41.0-53.0 % Mean Corpuscular Volume 90.9 80.0-100.0 fL Mean Corpuscular Hemoglobin 30.3 28.0-32.0 pg Mean Corpuscular Hemoglobin Concent 33.3 32.0-36.0 g/dL Red Cell Distribution Width 13.6 11.8-14.3 % Platelet Count 231 140-450 10^3/uL Mean Platelet Volume 10.8 6.9-10.8 fL Neutrophils (%) (Auto) 75.1 37.0-80.0 % Lymphocytes (%) (Auto) 19.1 10.0-50.0 % Monocytes (%) (Auto) 5.5 0.0-12.0 % Eosinophils (%) (Auto) 0.1 0.0-7.0 % Basophils (%) (Auto) 0.2 0.0-2.0 % Neutrophils # (Auto) 7.8 1.6-8.6 10 ^3/uL Lymphocytes # (Auto) 2.0 0.4-5.4 10 ^3/uL Monocytes # (Auto) 0.6 0-1.3 10 ^3/uL Eosinophils # (Auto) 0 0-0.8 10 ^3/uL Basophils # (Auto) 0 0-0.2 10 ^3/uL Nucleated Red Blood Cells 0.1 % Prothrombin Time 10.9 9.3-11.8 sec Prothrombin Time INR 1.03 0.9-1.15 Activated Partial Thromboplast Time 21.3 L 24.5-34.5 SEC Sodium Level 139 136-145 mmol/L Potassium Level 3.7 3.5-5.1 mmol/L Chloride Level 100 98-107 mmol/L Carbon Dioxide Level 21 20-31 mmol/L Anion Gap 18 H 5-15 Blood Urea Nitrogen 15 9-23 mg/dL Creatinine 1.03 0.700-1.30 mg/dL Glomerular Filtration Rate Calc 76 >90 mL/min BUN/Creatinine Ratio 14.6 10.0-20.0 Serum Glucose 198 H 74-106 mg/dL Calcium Level 10.8 H 8.7-10.4 mg/dL Total Bilirubin 1.7 H 0.2-1.0 mg/dL Aspartate Amino Transferase (AST) 27 13-40 U/L Alanine Aminotransferase (ALT) 32 7-40 U/L Alkaline Phosphatase 101 46-116 U/L Total Protein 8.7 H 5.7-8.2 g/dL Albumin 5.5 H 3.2-4.8 g/dL Lipase 30 12-53 U/L Urine Color Light-yellow Yellow Urine Clarity Clear Clear Urine pH 5.5 5.0-9.0 Urine Specific [place] 1.034 1.001-1.035 Urine Protein 1+ H Negative Urine Ketones 4+ H Negative Urine Blood Negative Negative /uL Urine Nitrite Negative Negative Urine Bilirubin Negative Negative Urine Urobilinogen Normal Negative mg/dL Urine Leukocyte Esterase Negative Negative /uL Urine RBC 1 0 - 3 /hpf Urine Microscopic WBC 3 0-3 /HPF Urine Squamous Epithelial Cells Few <5 /hpf Urine Bacteria None seen None Seen /hpf Urine Hyaline Casts Few 0 - 2 /lpf Urine Glucose 4+ H Normal mg/dL Assessment Probable Upper GI bleed secondary to gastritis? Hematemesis Hepatic steatosis Type 2 diabetes Hypertension History of vitamin-D deficiency Plan: Carafate We will consider EGD in the next 24-48 hours Counseled patient on avoiding alcohol and avoiding Motrin use. Liver ultrasound to evaluate hepatic steatosis Colonoscopy in the outpatient setting Plan discussed with Dr. Torres Plan discussed with: Patient, Other (RN) TONI SANCHES RESIDENT Dec 12, 2024 16:29
[2024-12-12] MEDS: SUCRALFATE 1 GM/10 ML ORAL SUSP PO SCH (17:00)
[2024-12-12] MEDS: InsuLIN REG 1unit/0.01ml Soln (100units/ml) SC SCH ×2 (17:00→21:25)
[2024-12-12] MEDS: ACCU-CHEK COMFORT CURVE STRIP VI SCH (17:09)
--- NOTE | 2024-12-12 17:18 | DVH ---
INDICATION: Hepatic steatosis TECHNIQUE: Multiple real-time sonographic images were obtained of the right upper quadrant. COMPARISON: None FINDINGS: The liver demonstrates increased echotexture without focal mass lesions. The liver measure s 15.2 cm. There is no intrahepatic or extrahepatic ductal dilatation. The common duct measures 0.4 cm. The gallbladder is without evidence of stone or sludge. The gallbladder wall measures 0.2 cm and is w ithin normal limits. Hypoechoic region in the gallbladder fossa likely representing focal fatty spari ng. The right kidney measures 10.9 cm. The right kidney is normal in contour, size, and shape. The echoge nicity is normal. There is no hydronephrosis. The pancreas is not well visualized due to overlying bowel gas. IMPRESSION: Hepatic steatosis.
--- NOTE | 2024-12-12 18:26 | ECG ---
[facility] Test Date: 2024-12-12 Test Time: 09:11:39 Pat Name: MANE MUHAMMAD Department: ER Room: 0250 B Gender: M Recreation Counselor: [place] : 1950 Requested By: GAURAV PATINO Order Number: [id number] Reading MD: Dalton Harper Measurements Intervals Murray Rate: 108 P: 53 ME: 180 QRS: 116 QRSD: 92 T: -19 QT: 349 QTc: 468 Interpretive Statements Sinus tachycardia Right axis deviation Borderline repolarization abnormality Electronically Signed On 12-15-2024 18:53:32 PDT by Dalton Harper Please click the below link to view image of tracing.
[2024-12-12 20:00] VITALS: PULSE 59; RESP 16; O2SAT 93
[2024-12-12 21:00] VITALS: BP 137/62; PULSE 59; RESP 16; TEMP 97.4; O2SAT 93
[2024-12-12] MEDS: ATORVASTATIN 20 MG TAB PO SCH (21:17)
[2024-12-12] MEDS: PANTOPRAZOLE 40 MG/10 ML VIAL INJ IV SCH (21:18)
[2024-12-12] MEDS: glipiZIDE 5 MG TAB PO SCH (21:18)
[2024-12-13] VITALS (7 sets, daily range): BP systolic 109–147; BP diastolic 64–71; PULSE 59–80; RESP 14–19; TEMP 97.1–98.2; O2SAT 93–97
[2024-12-13 07:09] LABS: Basophils # (auto) 0 10 ^3/uL (0-0.2); Basophils % (auto) 0.4 % (0.0-2.0); Eosinophils # (auto) 0.1 10 ^3/uL (0-0.8); Eosinophils % (auto) 1.9 % (0.0-7.0); Hematocrit 42.2 % (41.0-53.0); Hemoglobin 14.1 g/dL (13.5-17.5); Lymphocytes # (auto) 3.6 10 ^3/uL (0.4-5.4); Lymphocytes % (auto) 49.2 % (10.0-50.0); Mean Corpuscular Hgb Conc. 33.3 g/dL (32.0-36.0); Monocytes # (auto) 0.6 10 ^3/uL (0-1.3); Monocytes % (auto) 8.5 % (0.0-12.0); Nucleated Red Blood Cells % 0.2 %; Platelet Count (auto) 186 10^3/uL (140-450); Red Blood Cells 4.69 10^6/uL (4.5-5.90); Red Cell Distribution Width 13.6 % (11.8-14.3); White Blood Cell 7.4 10^3/uL (4.4-10.8)
[2024-12-13 07:32] LABS: Alanine Aminotransferase 20 U/L (7-40); Alkaline Phosphatase 67 U/L (46-116); Anion Gap 9 (5-15); BUN/Creatinine Ratio 14.3 (10.0-20.0); Blood Urea Nitrogen 10 mg/dL (9-23); Calcium 9.6 mg/dL (8.7-10.4); Carbon Dioxide 24 mmol/L (20-31); Chloride 107 mmol/L (98-107); Glucose 80 mg/dL (74-106); Sodium 140 mmol/L (136-145); Total Protein 6.4 g/dL (5.7-8.2)
[2024-12-13 07:33] LABS: Albumin 4.2 g/dL (3.2-4.8); Aspartate Aminotransferase 18 U/L (13-40); Potassium 3.4 mmol/L (3.5-5.1)
[2024-12-13 07:36] LABS: Bilirubin, Total 1.7 mg/dL (0.2-1.0)
[2024-12-13] MEDS ORDERED: NALOXONE HCL 0.4 MG/ML VIAL ONE (07:36)
[2024-12-13] MEDS ORDERED: FLUMAZENIL 0.1 MG/ML INJ 10ML MDV IV ONE (07:36)
[2024-12-13] MEDS ORDERED: LIDOCAINE VISCOUS 2% 15ML UD ONE (07:36)
[2024-12-13] MEDS ORDERED: MIDAZOLAM HCL 2MG/2ML 2ml VIAL (1mg/ml) ONE (07:38)
[2024-12-13] MEDS ORDERED: SODIUM CHLORIDE LOCK 10 ML ONE (07:50)
--- NOTE | 2024-12-13 08:33 | DVH ---
INDICATION: PRE OP/pain TECHNIQUE: Frontal view of the chest. COMPARISON: None FINDINGS: . The heart and mediastinal contours are grossly unremarkable. There is no evidence of pleural disea se. The lungs are clear. The bony structures of the chest are intact without fracture. IMPRESSION: 1. No evidence of acute disease.
[2024-12-13] MEDS: LIDOCAINE VISCOUS 2% 15ML UD MT ONE (09:27)
[2024-12-13] MEDS: MIDAZOLAM HCL 5 MG/ML-1ML VIAL ONE (09:28)
[2024-12-13] MEDS: fentaNYL CITRATE 100 MCG/2 ML VL ONE (09:28)
[2024-12-13] MEDS: diphenhdrAMINE HCL 50 MG/1 ML VL ONE (09:28)
[2024-12-13] MEDS: EMPAGLIFLOZIN 25 MG PO SCH (10:00)
[2024-12-13] MEDS: hydroCHLOROthiazide 25 MG TAB PO SCH (10:00)
[2024-12-13] MEDS: LISINOPRIL 5 MG TAB PO SCH (10:00)
[2024-12-13] MEDS: PIOGLITAZONE HYDROCHLORIDE 30 MG TAB PO SCH (10:00)
--- NOTE | 2024-12-13 10:20 | DVHOP2 ---
Operative Report DATE OF OPERATION: 12/13/24 PROCEDURE: Upper Endoscopy with biopsy. PREOPERATIVE INDICATION: The patient is a 74 -year-old male undergoing endoscopy for nausea vomiting upper GI bleed POSTOPERATIVE DIAGNOSES: 1. Slightly irregular squamocolumnar junction and grade a erosive esophagitis 2. [id number] gastroparesis with retained gastric food contents 3. Otherwise normal examination up to the 2nd and 3rd part of the duodenal with no fresh or old blood in the upper GI tract PROCEDURE PERFORMED BY: Zhanna Torres GI NURSE: Bridgette SCOPE: Olympus videoendoscope. ASA CLASS: 2. PREOPERATIVE MEDICATIONS: Versed 2 mg, Fentanyl 50 mcg, Benadryl 50 mg I administered moderate sedation throughout this _10_ minutes procedure. An independent trained observer pushed medications at my direction, and monitored the patient's level of consciousness and physiological status throughout. PROCEDURE IN DETAIL: After obtaining an informed consent, the patient was placed on left lateral decubitus position. The patient was then sedated with the above medications. A bite block was placed between his teeth. The endoscope was then passed through the oropharynx, into the esophagus, and through the stomach and pylorus up to the second and third part of the duodenum. The endoscope was then withdrawn. The 2nd and 3rd part of the duodenum and the duodenal bulb were normal. Duodenal biopsies were obtained. The pre-pyloric area antrum and body were essentially normal. Gastric biopsies were obtained. On retroflexion and straight on view the patient had moderate gastroparesis with retained gastric food contents. The endoscope was then withdrawn into the distal esophagus where the patient had a slightly irregular squamocolumnar junction grade a erosive esophagitis GE junction biopsies were obtained. The remaining distal and proximal esophagus and oropharynx were unremarkable The patient tolerated the procedure well without difficulty. COMPLICATIONS : None SPECIMENS: Duodenal biopsies Gastric biopsies GE junction biopsies DISPOSITION: Transfer back to the floor Stable PLAN: 1. Await for biopsy result 2. Will place pt on Protonix 40 mg IV daily 3. Resume full liquid diet advance to soft mechanical 4. Reglan 5 mg IV q.8 hours 4. Patient could be discharged on Protonix 40 mg p.o. daily and Reglan 5 mg p.o. q.h.s. 5. Outpatient follow up with me in 4-6 weeks to review results and discuss elective screening colonoscopy ZHANNA TORRES MD Dec 13, 2024 10:20
[2024-12-13] MEDS ORDERED: PANT40TA2 PO (13:47)
[2024-12-13] MEDS ORDERED: METO-281 PO (13:47)
[2024-12-13] MEDS ORDERED: SUCR1SUS26 PO (13:47)
--- NOTE | 2024-12-13 13:54 | DVHDS2 ---
Discharge Summary Date of Admission Dec 12, 2024 at 13:28 Date of Discharge: Dec 13, 2024 Admitting Diagnosis Erosive Esophagitis Labs/Diagnostic Data: Laboratory Results Test 12/13/24 11:44 12/13/24 10:46 12/13/24 06:15 12/12/24 09:53 Lactic Acid Level 1.1 mmol/L (0.4-2.0) POC Glucose 64 mg/dl (70-106) White Blood Count 7.4 10^3/uL (4.4-10.8) Red Blood Count 4.69 10^6/uL (4.5-5.90) Hemoglobin 14.1 g/dL (13.5-17.5) Hematocrit 42.2 % (41.0-53.0) Mean Corpuscular Volume 90.0 fL (80.0-100.0) Mean Corpuscular Hemoglobin 30.0 pg (28.0-32.0) Mean Corpuscular Hemoglobin Concent 33.3 g/dL (32.0-36.0) Red Cell Distribution Width 13.6 % (11.8-14.3) Platelet Count 186 10^3/uL (140-450) Mean Platelet Volume 9.6 fL (6.9-10.8) Neutrophils (%) (Auto) 40.0 % (37.0-80.0) Lymphocytes (%) (Auto) 49.2 % (10.0-50.0) Monocytes (%) (Auto) 8.5 % (0.0-12.0) Eosinophils (%) (Auto) 1.9 % (0.0-7.0) Basophils (%) (Auto) 0.4 % (0.0-2.0) Neutrophils # (Auto) 3.0 10 ^3/uL (1.6-8.6) Lymphocytes # (Auto) 3.6 10 ^3/uL (0.4-5.4) Monocytes # (Auto) 0.6 10 ^3/uL (0-1.3) Eosinophils # (Auto) 0.1 10 ^3/uL (0-0.8) Basophils # (Auto) 0 10 ^3/uL (0-0.2) Nucleated Red Blood Cells 0.2 % Sodium Level 140 mmol/L (136-145) Potassium Level 3.4 mmol/L (3.5-5.1) Chloride Level 107 mmol/L (98-107) Carbon Dioxide Level 24 mmol/L (20-31) Anion Gap 9 (5-15) Blood Urea Nitrogen 10 mg/dL (9-23) Creatinine 0.70 mg/dL (0.700-1.30) Glomerular Filtration Rate Calc 97 mL/min (>90) BUN/Creatinine Ratio 14.3 (10.0-20.0) Serum Glucose 80 mg/dL (74-106) Calcium Level 9.6 mg/dL (8.7-10.4) Total Bilirubin 1.7 mg/dL (0.2-1.0) Aspartate Amino Transferase (AST) 18 U/L (13-40) Alanine Aminotransferase (ALT) 20 U/L (7-40) Alkaline Phosphatase 67 U/L (46-116) Total Protein 6.4 g/dL (5.7-8.2) Albumin 4.2 g/dL (3.2-4.8) Prothrombin Time 10.9 sec (9.3-11.8) Prothrombin Time INR 1.03 (0.9-1.15) Activated Partial Thromboplast Time 21.3 SEC (24.5-34.5) Lipase 30 U/L (12-53) Test 12/12/24 09:48 Urine Color Light-yellow (Yellow) Urine Clarity Clear (Clear) Urine pH 5.5 (5.0-9.0) Urine Specific [place] 1.034 (1.001-1.035) Urine Protein 1+ (Negative) Urine Ketones 4+ (Negative) Urine Blood Negative /uL (Negative) Urine Nitrite Negative (Negative) Urine Bilirubin Negative (Negative) Urine Urobilinogen Normal mg/dL (Negative) Urine Leukocyte Esterase Negative /uL (Negative) Urine RBC 1 /hpf (0 - 3) Urine Microscopic WBC 3 /HPF (0-3) Urine Squamous Epithelial Cells Few /hpf (<5) Urine Bacteria None seen /hpf (None Seen) Urine Hyaline Casts Few /lpf (0 - 2) Urine Glucose 4+ mg/dL (Normal) Other Laboratory Tests 12/13/24 06:15 Brief Hx & Hospital Course: Patient is a 74-year-old male with past medical history of diabetes, hypertension, GERD, who comes in due to hematemesis. According to the patient, overnight he had 3 episodes of vomiting that did not contain any blood. In the morning he woke up and had another 3 episodes of vomiting which were now containing dark blood. Patient denies any similar symptoms in the past. Patient notes he had no checked for dinner the night before. Patient admits using Motrin often, 3-4 times per week. Patient underwent EGD, see report below. Patient needs to stay away from Motrin. Will discharge with Motrin and, Carafate, and Reglan. See GI clinic in 4 weeks. Operations or Procedures Operative Report DATE OF OPERATION: 12/13/24 PROCEDURE: Upper Endoscopy with biopsy. PREOPERATIVE INDICATION: The patient is a 74 -year-old male undergoing endoscopy for nausea vomiting upper GI bleed POSTOPERATIVE DIAGNOSES: 1. Slightly irregular squamocolumnar junction and grade a erosive esophagitis 2. Pame-zi-[id number] gastroparesis with retained gastric food contents 3. Otherwise normal examination up to the 2nd and 3rd part of the duodenal with no fresh or old blood in the upper GI tract PROCEDURE PERFORMED BY: Treasure Torres GI NURSE: Bridgette SCOPE: Olympus videoendoscope. ASA CLASS: 2. PREOPERATIVE MEDICATIONS: Versed 2 mg, Fentanyl 50 mcg, Benadryl 50 mg I administered moderate sedation throughout this _10_ minutes procedure. An independent trained observer pushed medications at my direction, and monitored the patient's level of consciousness and physiological status throughout. PROCEDURE IN DETAIL: After obtaining an informed consent, the patient was placed on left lateral decubitus position. The patient was then sedated with the above medications. A bite block was placed between his teeth. The endoscope was then passed through the oropharynx, into the esophagus, and through the stomach and pylorus up to the second and third part of the duodenum. The endoscope was then withdrawn. The 2nd and 3rd part of the duodenum and the duodenal bulb were normal. Duodenal biopsies were obtained. The pre-pyloric area antrum and body were essentially normal. Gastric biopsies were obtained. On retroflexion and straight on view the patient had moderate gastroparesis with retained gastric food contents. The endoscope was then withdrawn into the distal esophagus where the patient had a slightly irregular squamocolumnar junction grade a erosive esophagitis GE junction biopsies were obtained. The remaining distal and proximal esophagus and oropharynx were unremarkable The patient tolerated the procedure well without difficulty. COMPLICATIONS : None SPECIMENS: Duodenal biopsies Gastric biopsies GE junction biopsies DISPOSITION: Transfer back to the floor Stable PLAN: 1. Await for biopsy result 2. Will place pt on Protonix 40 mg IV daily 3. Resume full liquid diet advance to soft mechanical 4. Reglan 5 mg IV q.8 hours 4. Patient could be discharged on Protonix 40 mg p.o. daily and Reglan 5 mg p.o. q.h.s. 5. Outpatient follow up with me in 4-6 weeks to review results and discuss elective screening colonoscopy Condition at Discharge: Poor Final Diagnosis/Problems List Erosive Esophagitis Gastroparesis Discharge Disposition: Home Discharge Instruct/Medications Diet: See Comment Diet comment: Soft Diet Follow Up/Referral: [facility]. [facility] Discharge Statement: "Patient was advised to return to the ER or call 911 if any headaches, dizziness, shortness of breath, chest pain, abdominal pain, bleeding, fevers, or worsening of medical condition. Patient was counseled about treatment plan, medications, possible side effects, patientverbalized understanding. All questions were answered to the best of my ability. This discharge took greater then 30 minutes in planning, reviewing documentation, counseling the patient, and discussing with other team members." ASSESSMENT ASSESSMENT Assessment Date of Service: Dec 13, 2024 Billing Provider: ADONAY SLAUGHTER MD Common Visit Codes: 56419-MYO/OBS DISCH DAY >30min ADONAY SLAUGHTER MD Dec 13, 2024 13:54
[2024-12-13] MEDS: METOCLOPRAMIDE HCL 5MG/ml INJ 2ml VIAL IV SCH (14:00)
[2024-12-13] MEDS: FAMOTIDINE (10MG/ML) 2ML VL IV ONE (18:59)
== END 2024-12-13 19:33 | disposition home or self-care (01) | DRG 382 ==
LOC: ER 08:52 → OVERFLOW 13:28 → EAST 16:27
PROVIDERS: ADMIT Internal Medicine; ATTEND Internal Medicine
PROC: 0DB68ZX Excision of Stomach, Via Natural or Artificial Opening Endoscopic, Diagnostic (ICD-10-PCS; 2024-12-13)
PROC: 0DB48ZX Excision of Esophagogastric Junction, Via Natural or Artificial Opening Endoscopic, Diagnostic (ICD-10-PCS; 2024-12-13)
PROC: 0DB98ZX Excision of Duodenum, Via Natural or Artificial Opening Endoscopic, Diagnostic (ICD-10-PCS; principal; 2024-12-13 09:27)
DX: K22.11 Ulcer of esophagus with bleeding (principal); E11.65 Type 2 diabetes mellitus with hyperglycemia; K76.0 Fatty (change of) liver, not elsewhere classified; K31.84 Gastroparesis; I10 Essential (primary) hypertension; E11.43 Type 2 diabetes mellitus with diabetic autonomic (poly)neuropathy; Z87.11 Personal history of peptic ulcer disease; Z79.84 Long term (current) use of oral hypoglycemic drugs; Z79.899 Other long term (current) drug therapy
CPT/HCPCS: 36415; 43239; 71045; 74177; 76705; 80053; 81001; 82962; 83605; 83690; 85025; 85610; 85730; 86850; 86900; 86901; 93005; 96361; 96374; 96375; 99291; G0378; J1815; J2250; J2405; J2470; J3490

== ENCOUNTER → 2025-02-20 | Outpatient (CLI) | payer MEDICAID ==
[~2025-02-20] MED LIST: EMPA1TAB3 PO; GLIP10TA9 PO; LISI-285 PO; METO-281 PO; PANT40TA2 PO; PIOG1TAB36 PO; ROSU10TA64 PO; SEMA1INJ2 SC; SUCR1SUS26 PO; TRAM50TA2 PO
[2025-02-20 10:26] LABS: Urine Bacteria None Seen /hpf (None Seen)
[2025-02-20 10:33] LABS: Hematocrit 42.4 % (41.0-53.0); Hemoglobin 14.1 g/dL (13.5-17.5); Mean Corpuscular Hemoglobin 30.2 pg (28.0-32.0); Mean Corpuscular Hgb Conc. 33.4 g/dL (32.0-36.0); Mean Corpuscular Volume 90.6 fL (80.0-100.0); Platelet Count (auto) 180 10^3/uL (140-450); Red Blood Cells 4.68 10^6/uL (4.5-5.90); Red Cell Distribution Width 15.5 % (11.8-14.3); White Blood Cell 7.2 10^3/uL (4.4-10.8)
[2025-02-20 10:59] LABS: Alanine Aminotransferase 21 U/L (7-40); Albumin 4.3 g/dL (3.2-4.8); Alkaline Phosphatase 96 U/L (46-116); Anion Gap 10 (5-15); Aspartate Aminotransferase 20 U/L (13-40); BUN/Creatinine Ratio 15.8 (10.0-20.0); Blood Urea Nitrogen 12 mg/dL (9-23); Carbon Dioxide 27 mmol/L (20-31); Chloride 106 mmol/L (98-107); Potassium 3.7 mmol/L (3.5-5.1); Sodium 143 mmol/L (136-145); Total Protein 6.7 g/dL (5.7-8.2)
[2025-02-20 11:02] LABS: Bilirubin, Total 1.9 mg/dL (0.2-1.0); Cholesterol 218 mg/dL (< 200); Folate (Folic Acid) 20.84 ng/mL (>5.38); Glucose 148 mg/dL (74-106); HDL Cholesterol 61 mg/dL (40-59); LDL Cholesterol 133 mg/dL (< 100); Triglycerides 153 mg/dL (< 150); Urine Blood Negative /uL (Negative); Urine Clarity Clear (Clear); Urine Color Light-Yellow (Yellow); Urine Protein, UAD Negative (Negative); Urine Specific Gravity 1.038 (1.001-1.035); Urine Squamous Epithelial Cell None Seen /hpf (<5); Urine Urobilinogen Normal (Negative); Urine WBC < 1 /HPF (0-3); Urine pH 6.5 (5.0-9.0)
[2025-02-20 11:14] LABS: Uric Acid 5.2 mg/dL (3.7-9.2)
[2025-02-20 11:19] LABS: Basophils % (manual) 0 (0.0-2.0); Blast Cells 0; Metamyelocytes % 0; Myelocytes % 0; Promyelocytes % 0
[2025-02-20 12:30] LABS: Band Neutrophils % (manual) 1; Eosinophils % (manual) 3 (0-7); Lymphocytes % (manual) 54 (10.0-50.0); Monocytes % (manual) 9 (0-12); Platelet Estimate Adequate; Reactive Lymphocytes 2
== END | disposition home or self-care (01) ==
LOC: LAB 10:11
PROVIDERS: ATTEND Internal Medicine
DX: E61.2 Magnesium deficiency (principal); E55.9 Vitamin D deficiency, unspecified; D51.9 Vitamin B12 deficiency anemia, unspecified; E79.0 Hyperuricemia without signs of inflammatory arthritis and tophaceous disease; R94.6 Abnormal results of thyroid function studies; R82.998 Other abnormal findings in urine; R82.90 Unspecified abnormal findings in urine; R82.79 Other abnormal findings on microbiological examination of urine
CPT/HCPCS: 36415; 80053; 80061; 81001; 82306; 82607; 82746; 84443; 84550; 85007; 85027; 87086

== ENCOUNTER 2025-07-02 10:37 | Outpatient (CLI) | payer MEDICAID ==
[2025-07-02 11:10] LABS: Urine Protein, UAD Negative (Negative)
[2025-07-02 11:16] LABS: Hematocrit 45.4 % (41.0-53.0); Hemoglobin 15.7 g/dL (13.5-17.5); Mean Corpuscular Hemoglobin 31.1 pg (28.0-32.0); Mean Corpuscular Volume 90.1 fL (80.0-100.0); Nucleated Red Blood Cells % 0.3 %
[2025-07-02 11:36] LABS: Alanine Aminotransferase 38 U/L (7-40); Albumin 4.5 g/dL (3.2-4.8); Alkaline Phosphatase 129 U/L (46-116); Anion Gap 10 (5-15); BUN/Creatinine Ratio 15.6 (10.0-20.0); Bilirubin, Total 1.0 mg/dL (0.2-1.0); Blood Urea Nitrogen 14 mg/dL (9-23); Calcium 9.5 mg/dL (8.7-10.4); Carbon Dioxide 27 mmol/L (20-31); Chloride 104 mmol/L (98-107); Glucose 149 mg/dL (74-106); HDL Cholesterol 51 mg/dL (40-59); Potassium 3.8 mmol/L (3.5-5.1); Sodium 141 mmol/L (136-145); Total Protein 7.5 g/dL (5.7-8.2); Triglycerides 151 mg/dL (< 150)
[2025-07-02 11:40] LABS: Cholesterol 214 mg/dL (< 200)
[2025-07-02 11:52] LABS: Uric Acid 5.4 mg/dL (3.7-9.2)
== END 2025-07-02 17:00 | disposition home or self-care (01) ==
LOC: LAB 10:37
PROVIDERS: ATTEND Internal Medicine
DX: E78.49 Other hyperlipidemia (principal); E61.2 Magnesium deficiency; E79.0 Hyperuricemia without signs of inflammatory arthritis and tophaceous disease; R68.89 Other general symptoms and signs; R94.6 Abnormal results of thyroid function studies; R82.998 Other abnormal findings in urine; E55.9 Vitamin D deficiency, unspecified; R82.79 Other abnormal findings on microbiological examination of urine; D51.9 Vitamin B12 deficiency anemia, unspecified; E11.9 Type 2 diabetes mellitus without complications
CPT/HCPCS: 36415; 80053; 80061; 81001; 82306; 82607; 82746; 83036; 84443; 84550; 85025; 87086